=== PATIENT | male | born 1985 | race Caucasian/White ===

== ENCOUNTER 2018-10-31 10:59 | Emergency (ER) | payer SELFPAY ==
[2018-10-31] MEDS ORDERED: Dexamethasone 10 MG/ML VIAL ONE (11:06)
[2018-10-31] MEDS ORDERED: Bicillin LA 1.2 MILLION UNITS/2 ML SYRINGE ONE ×2 (11:06→11:07)
== END 2018-10-31 11:30 | disposition home or self-care (01) ==
LOC: SCSER 10:59
DX: J02.0 Streptococcal pharyngitis (principal)
CPT/HCPCS: 96372; J0561; J1100

== ENCOUNTER 2019-05-10 08:43 | Outpatient (CLI) | payer OTHER ==
--- NOTE | 2019-05-10 08:59 | RAD ---
EXAM: 3 views of the right shoulder HISTORY: Shoulder pain COMPARISON: None FINDINGS: There is no evidence of acute fracture or dislocation. Lucent areas in the femoral head cou ld be from prior shoulder surgery or represent cysts. No degenerative changes are present. No soft tissue swelling is seen. The visualized thorax is unremarkable. IMPRESSION: No evidence of acute osseous abnormality.
== END 2019-05-10 08:44 | disposition home or self-care (01) ==
LOC: BICRAD 08:43
PROVIDERS: ATTEND Orthopaedic Surgery
DX: M19.011 Primary osteoarthritis, right shoulder (principal)